=== PATIENT | male | born 1985 | race African-American/Black ===

== ENCOUNTER 2016-08-25 19:17 | Emergency (ER) | payer SELFPAY ==
[~2016-08-25] VITALS: Ht 180.3 cm; Wt 75.0 kg
[2016-08-25] MEDS ORDERED: KETOROLAC 60MG/2ML VIAL IM ONE (23:00)
[2016-08-25] MEDS ORDERED: DIAZEPAM 5 MG/ML 2ML CPJ IM ONE (23:00)
[2016-08-25 23:03] VITALS: BP 121/71
== END 2016-08-25 23:48 | disposition home or self-care (01) ==
LOC: ER 19:17
DX: M54.2 Cervicalgia (principal); R55 Syncope and collapse; R07.89 Other chest pain; M54.9 Dorsalgia, unspecified; V89.2XXA Person injured in unspecified motor-vehicle accident, traffic, initial encounter; Y93.89 Activity, other specified; Y92.89 Other specified places as the place of occurrence of the external cause; Y99.2 Volunteer activity; F17.200 Nicotine dependence, unspecified, uncomplicated; F12.10 Cannabis abuse, uncomplicated
CPT/HCPCS: 71020; 72040; 96372; 99284; J1885; Z7610